=== PATIENT | female | born 1955 | race Caucasian/White ===

== ENCOUNTER 2018-09-03 14:40 | Emergency (ER) | payer SELFPAY, MEDICAID ==
[2018-09-03] MEDS: SOD CHLORIDE 0.9% 500 ML IV (15:37)
[2018-09-03] MEDS: METHYLPREDNISOLONE 125 MG INJ IV (15:37)
== END 2018-09-03 16:57 | disposition home or self-care (01) ==
LOC: FTE 16:57
DX: J06.9 Acute upper respiratory infection, unspecified (principal); I10 Essential (primary) hypertension
CPT/HCPCS: 71046; 87400; 93005; 96361; 96374; 99285-25